=== PATIENT | male | born 1975 | race Caucasian/White ===

== ENCOUNTER 2023-12-20 18:53 | Inpatient (IN) | payer OTHER ==
[2023-12-20 20:41] LABS: BASO % 0.4 % (0-2.0); EOS % 0.8 % (0-4.5); HEMATOCRIT 32.6 % (35.4-49); HEMOGLOBIN 11.3 GM/dL (11.7-16.9); LYMPH % 13.1 % (8-40); MCH 32.1 pg (25.7-33.7); MCHC 34.8 g/dl (32.0-35.9); MEAN CELL VOLUME 92.3 fl (80-96); MEAN PLT VOLUME 8.8 fl (7.5-11.1); MONO % 17.6 % (3.8-10.2); NEUT % 68.1 % (42.8-82.8); PLATELET COUNT 81 10^3/uL (134-434); RBC 3.53 M/mm3 (4.00-5.60); RDW 23.2 % (11.9-15.9); WHITE BLOOD COUNT 6.6 K/mm3 (4.0-10.0)
[2023-12-20 20:44] LABS: INR 2.65 (0.83-1.09); PROTHROMBIN TIME (PATIENT) 29.1 SEC (9.7-13.0)
[2023-12-20 20:47] LABS: EPI CELLS 0 /uL (0-25.1); HYALINE CASTS 0 /uL (0-3.1); PH,URINE 6.5 (5.0-8.0); URINE APPEARANCE CLEAR; URINE BILIRUBIN 3+ (NEGATIVE); URINE COLOR DK YELLOW; URINE GLUCOSE (UA) NEGATIVE (NEGATIVE); URINE KETONE NEGATIVE (NEGATIVE); URINE LEUK ESTERASE TRACE (NEGATIVE); URINE NITRITE POSITIVE (NEGATIVE); URINE PROTEIN TRACE (NEGATIVE); URINE RBC 17 /uL (0-23.9); URINE WBC 1 /uL (0-25.8)
[2023-12-20 20:55] LABS: CHLORIDE 99 mmol/L (98-107); SODIUM 131 mmol/L (136-145)
[2023-12-20 20:57] LABS: CALCIUM 7.5 mg/dL (8.5-10.1)
[2023-12-20 20:58] LABS: BLOOD UREA NITROGEN 8.5 mg/dL (7-18); CO2 22 mmol/L (21-32); GLUCOSE,RANDOM 94 mg/dL (74-106)
[2023-12-20 20:59] LABS: ANION GAP 10 mmol/L (4-13); POTASSIUM 2.7 mmol/L (3.5-5.1)
[2023-12-20 21:01] LABS: CREATININE 0.8 mg/dL (0.55-1.3); SGOT/AST 165 U/L (15-37); SGPT/ALT 63 U/L (13-61)
[2023-12-20 21:02] LABS: LDH 321 U/L (87-246)
[2023-12-20 21:04] LABS: ALK PHOS 104 U/L (45-117)
[2023-12-20 21:22] LABS: BILIRUBIN,DIRECT 23.8 mg/dL (0.0-0.2); BILIRUBIN,TOTAL 28.4 mg/dL (0.2-1)
[2023-12-20] MEDS ORDERED: KCL 10 MEQ IVPB 10 MEQ/100 ML INFUS.BAG IVPB ONE (22:01)
[2023-12-20] MEDS ORDERED: POTASSIUM CHLORIDE ORAL LIQUID 20 MEQ/15 ML ONE (22:01)
[2023-12-20] MEDS ORDERED: MAGNESIUM SULFATE IN WATER 2 GM/50 ML IVPB IVPB ONE (22:18)
[2023-12-20] MEDS: KCL 10 MEQ IVPB 10 MEQ/100 ML INFUS.BAG IVPB SCH (22:20)
[2023-12-20] MEDS: POTASSIUM CHLORIDE ORAL LIQUID 20 MEQ/15 ML PO ONE (22:20)
[2023-12-20 22:27] LABS: ANISOCYTOSIS 0; MACROCYTOSIS 0
[2023-12-20] MEDS: FOLIC ACID INJECTION - 1 MG, THIAMINE HCL 100 MG, MULTIVIT INJECTION ADULT 10 ML in SOD... IVPB ONE (22:52)
[2023-12-20 22:54] LABS: URINE BACTERIA 1.8 /uL (0-1359); URINE CRYSTALS NONE SEEN /hpf
[2023-12-20] MEDS ORDERED: KCL 10 MEQ IVPB 20 MEQ/200 ML INFUS.BAG IVPB ONE (23:29)
[2023-12-20] MEDS: MAGNESIUM SULF 50% (8.12 MEQ/2 ML-1 GM VIAL) IVPB ONE (23:56)
[2023-12-21] MEDS ORDERED: POTASSIUM CHLORIDE TABS 20 MEQ TABLET.ER (FP) PO ONE ×2 (06:59→19:51)
[2023-12-21] MEDS ORDERED: FOLIC ACID 1 MG TABLET (FP) ONE (07:00)
[2023-12-21] MEDS: FOLIC ACID 1 MG TABLET (FP) PO ONE (07:04)
[2023-12-21] MEDS: POTASSIUM CHLORIDE TABS 20 MEQ TABLET.ER (FP) PO ONE ×2 (07:04→21:58)
[2023-12-21 08:03] LABS: CHLORIDE 102 mmol/L (98-107); POTASSIUM 3.1 mmol/L (3.5-5.1); SODIUM 133 mmol/L (136-145)
[2023-12-21 08:05] LABS: CALCIUM 7.3 mg/dL (8.5-10.1)
[2023-12-21 08:06] LABS: ANION GAP 11 mmol/L (4-13); BLOOD UREA NITROGEN 6.4 mg/dL (7-18); CO2 21 mmol/L (21-32); GLUCOSE,RANDOM 79 mg/dL (74-106); MAGNESIUM 2.2 mg/dL (1.8-2.4)
[2023-12-21 08:09] LABS: CREATININE 0.7 mg/dL (0.55-1.3); SGOT/AST 182 U/L (15-37); SGPT/ALT 69 U/L (13-61)
[2023-12-21 08:11] LABS: ALK PHOS 109 U/L (45-117); TOT PROT 6.2 g/dl (6.4-8.2)
[2023-12-21 08:22] LABS: BILIRUBIN,TOTAL 31.3 mg/dL (0.2-1)
[2023-12-21 08:32] LABS: INR 2.63 (0.83-1.09); PROTHROMBIN TIME (PATIENT) 29.4 SEC (9.7-13.0)
[2023-12-21] MEDS: THIAMINE 100 MG TABLET PO SCH (11:18)
[2023-12-21 12:07] LABS: CHLORIDE 105 mmol/L (98-107); SODIUM 135 mmol/L (136-145)
[2023-12-21 12:09] LABS: ALBUMIN 1.8 g/dl (3.4-5.0); BLOOD UREA NITROGEN 6.6 mg/dL (7-18); CALCIUM 7.2 mg/dL (8.5-10.1); CO2 21 mmol/L (21-32)
[2023-12-21 12:10] VITALS: BMI 43.0
[2023-12-21 12:10] LABS: GLUCOSE,RANDOM 86 mg/dL (74-106)
[2023-12-21 12:12] LABS: SGPT/ALT 68 U/L (13-61)
[2023-12-21 12:13] LABS: CREATININE 0.6 mg/dL (0.55-1.3); SGOT/AST 177 U/L (15-37)
[2023-12-21 12:15] LABS: ALK PHOS 102 U/L (45-117)
[2023-12-21 12:28] LABS: ANION GAP 10 mmol/L (4-13); BILIRUBIN,TOTAL 26.4 mg/dL (0.2-1); POTASSIUM 2.8 mmol/L (3.5-5.1); TOT PROT 5.8 g/dl (6.4-8.2)
[2023-12-21] MEDS: PrednisoLONE 15 MG/5 ML UNIT-DOSE CUP PO SCH (12:53)
[2023-12-22] MEDS: POTASSIUM CHLORIDE TABS 20 MEQ TABLET.ER (FP) PO ONE (00:31)
[2023-12-22 08:59] LABS: BILIRUBIN,DIRECT 26.1 mg/dL (0.0-0.2)
[2023-12-22 09:13] LABS: BASO % 0.2 % (0-2.0); EOS % 0.2 % (0-4.5); HEMATOCRIT 39.9 % (35.4-49); MCH 32.5 pg (25.7-33.7); MCHC 35.1 g/dl (32.0-35.9); MEAN CELL VOLUME 92.8 fl (80-96); MEAN PLT VOLUME 9.5 fl (7.5-11.1); MONO % 13.4 % (3.8-10.2); NEUT % 74.2 % (42.8-82.8); PLATELET COUNT 127 10^3/uL (134-434); RDW 23.2 % (11.9-15.9); WHITE BLOOD COUNT 10.9 K/mm3 (4.0-10.0)
[2023-12-22 09:21] LABS: INR 2.36 (0.83-1.09)
[2023-12-22 12:21] LABS: CHLORIDE 104 mmol/L (98-107); POTASSIUM 3.3 mmol/L (3.5-5.1); SODIUM 136 mmol/L (136-145)
[2023-12-22 12:24] LABS: ANION GAP 13 mmol/L (4-13); BLOOD UREA NITROGEN 7.8 mg/dL (7-18); CO2 19 mmol/L (21-32); GLUCOSE,RANDOM 84 mg/dL (74-106)
[2023-12-22 12:25] LABS: ALBUMIN 2.2 g/dl (3.4-5.0)
[2023-12-22 12:27] LABS: CREATININE 0.7 mg/dL (0.55-1.3); SGOT/AST 228 U/L (15-37); SGPT/ALT 94 U/L (13-61)
[2023-12-22 12:32] LABS: ALK PHOS 141 U/L (45-117); TOT PROT 7.2 g/dl (6.4-8.2)
[2023-12-22 12:44] LABS: BILIRUBIN,TOTAL 30.1 mg/dL (0.2-1)
[2023-12-22] MEDS: POTASSIUM CHLORIDE ORAL LIQUID 20 MEQ/15 ML PO ONE (18:49)
[2023-12-22 19:01] LABS: URINE BARBITURATES NEGATIVE (NEGATIVE); URINE BENZODIAZEPINES NEGATIVE (NEGATIVE)
[2023-12-22 19:02] LABS: OPIATES, URI NEGATIVE (NEGATIVE); PHENCYCLIDINE,URINE NEGATIVE (NEGATIVE)
[2023-12-22 19:05] LABS: COCAINE, UR NEGATIVE (NEGATIVE); METHADONE, UR NEGATIVE (NEGATIVE); URINE AMPHETAMINES NEGATIVE (NEGATIVE)
[2023-12-23 12:17] LABS: HEMATOCRIT 38.4 % (35.4-49); HEMOGLOBIN 13.1 GM/dL (11.7-16.9); MCH 32.3 pg (25.7-33.7); MCHC 34.1 g/dl (32.0-35.9); MEAN CELL VOLUME 94.7 fl (80-96); MEAN PLT VOLUME 9.7 fl (7.5-11.1); PLATELET COUNT 130 10^3/uL (134-434); RBC 4.05 M/mm3 (4.00-5.60); RDW 23.2 % (11.9-15.9); WHITE BLOOD COUNT 11.2 K/mm3 (4.0-10.0)
[2023-12-23 12:40] LABS: CHLORIDE 102 mmol/L (98-107); POTASSIUM 3.1 mmol/L (3.5-5.1); SODIUM 135 mmol/L (136-145)
[2023-12-23 12:41] LABS: CALCIUM 7.9 mg/dL (8.5-10.1)
[2023-12-23 12:42] LABS: ANION GAP 11 mmol/L (4-13); BLOOD UREA NITROGEN 10.3 mg/dL (7-18); CO2 22 mmol/L (21-32); GLUCOSE,RANDOM 72 mg/dL (74-106)
[2023-12-23 12:45] LABS: CREATININE 0.7 mg/dL (0.55-1.3)
[2023-12-23 13:00] LABS: BILIRUBIN,TOTAL 27.6 mg/dL (0.2-1)
[2023-12-23 13:48] LABS: MAGNESIUM 2.1 mg/dL (1.8-2.4)
[2023-12-23] MEDS: LACTULOSE 20 GM/30 ML UDC (FOR ORAL USE ONLY) PO PRN (14:19)
[2023-12-23] MEDS: POTASSIUM CHLORIDE ORAL LIQUID 20 MEQ/15 ML PO SCH (14:19)
[2023-12-23] MEDS: KCL 10 MEQ IVPB 10 MEQ/100 ML INFUS.BAG IVPB SCH (14:20)
[2023-12-24 10:04] VITALS: BP 96/68; PULSE 69; RESP 20; TEMP 98
[2023-12-24 13:19] LABS: BASO % 0.2 % (0-2.0); EOS % 0.4 % (0-4.5); HEMATOCRIT 40.2 % (35.4-49); HEMOGLOBIN 14.1 GM/dL (11.7-16.9); LYMPH % 9.3 % (8-40); MCH 32.6 pg (25.7-33.7); MEAN CELL VOLUME 93.4 fl (80-96); MEAN PLT VOLUME 9.1 fl (7.5-11.1); MONO % 7.7 % (3.8-10.2); NEUT % 82.4 % (42.8-82.8); PLATELET COUNT 159 10^3/uL (134-434); RDW 23.7 % (11.9-15.9); WHITE BLOOD COUNT 12.3 K/mm3 (4.0-10.0)
[2023-12-24 13:49] LABS: CHLORIDE 100 mmol/L (98-107); POTASSIUM 3.4 mmol/L (3.5-5.1); SODIUM 133 mmol/L (136-145)
[2023-12-24 13:51] LABS: ALBUMIN 2.2 g/dl (3.4-5.0); ANION GAP 11 mmol/L (4-13); CALCIUM 8.3 mg/dL (8.5-10.1); CO2 22 mmol/L (21-32); GLUCOSE,RANDOM 101 mg/dL (74-106); MAGNESIUM 1.9 mg/dL (1.8-2.4)
[2023-12-24 13:54] LABS: CREATININE 0.8 mg/dL (0.55-1.3)
[2023-12-24 13:55] LABS: SGOT/AST 210 U/L (15-37); SGPT/ALT 121 U/L (13-61)
[2023-12-24 13:57] LABS: ALK PHOS 160 U/L (45-117)
[2023-12-24 14:06] LABS: TOT PROT 7.4 g/dl (6.4-8.2)
[2023-12-24 14:10] LABS: BILIRUBIN,TOTAL 28.4 mg/dL (0.2-1)
[2023-12-24 14:15] LABS: ANISOCYTOSIS 2+; MACROCYTOSIS 0; TARGET CELLS 2+
== END 2023-12-24 13:27 | disposition home or self-care (01) | DRG 280 ==
LOC: JER 18:53 → JERBED 12-21 06:45 → J8W 12-21 08:34
PROVIDERS: ADMIT Internal Medicine; ATTEND Nurse Practitioner Acute Care
DX: K70.10 Alcoholic hepatitis without ascites (principal); K70.31 Alcoholic cirrhosis of liver with ascites; K72.90 Hepatic failure, unspecified without coma; Z59.01 Sheltered homelessness; E87.6 Hypokalemia; F32.A Depression, unspecified; E66.01 Morbid (severe) obesity due to excess calories; Z68.41 Body mass index [BMI] 40.0-44.9, adult
CPT/HCPCS: 36415; 74177-TC; 80048; 80053; 80076; 80307; 81003; 82140; 82247; 82248; 83615; 83690; 83735; 83880; 84484; 85025; 85027; 85610; 87086; 93005; 93010; 99285-25; Q9967